=== PATIENT | male | born 1960 | race Caucasian/White ===

== ENCOUNTER 2018-06-13 08:07 | Emergency (ER) | payer BC ==
[~2018-06-13] VITALS: Ht 177.8 cm; Wt 97.3 kg
[2018-06-13 08:56] LABS: PARTIAL THROMBOPLASTIN TIME 28 SECONDS (22-32); PROTHROMBIN TIME 9.9 SECONDS (9.0-12.0)
[2018-06-13 08:58] LABS: ALANINE AMINOTRANSFERASE 44 U/L (12-78); ALBUMIN 3.1 G/DL (3.4-5.0); ALBUMIN/GLOBULIN RATIO 0.8 (1.1-1.5); ALKALINE PHOSPHATASE 69 IU/L (46-116); ANION GAP 9 (8-16); ASPARTATE AMINO TRANSFERASE 20 U/L (10-37); BILIRUBIN,TOTAL 0.7 MG/DL (0.1-1.0); BLOOD UREA NITROGEN 18 MG/DL (7-18); BUN/CREATININE RATIO 17.6 (5.4-32.0); CALCIUM 8.4 MG/DL (8.5-10.1); CHLORIDE 102 MMOL/L (99-107); CREATININE 1.02 MG/DL (0.60-1.10); GLUCOSE 94 MG/DL (70-104); POTASSIUM 3.9 MMOL/L (3.5-5.1); SODIUM 137 MMOL/L (135-145); TOTAL CARBON DIOXIDE 26.5 MMOL/L (24-32); eGFR 74 ML/MIN
[2018-06-13] MEDS ORDERED: predniSONE 20 mg tablet PO ONE (09:15)
[2018-06-13] MEDS ORDERED: ipratropium/albuterol 3ml nebule NEB ONE (09:15)
[2018-06-13 09:23] LABS: HEMATOCRIT 44.4 % (42.0-52.0); MEAN CORPUSCULAR HEMOGLOBIN 29.8 PG (27.0-31.0); MEAN CORPUSCULAR HGB CONC 33.8 % (33.0-36.5); MEAN CORPUSCULAR VOLUME 88.2 FL (78-98); PLATELET COUNT 230 X10'3 (140-440); RED BLOOD COUNT 5.03 X10'6 (4.70-6.10); RED CELL DISTRIBUTION WIDTH 13.6 % (11.5-14.5); WHITE BLOOD COUNT 11.6 X10'3 (4.5-11.0)
[2018-06-13 09:24] LABS: MEAN PLATELET VOLUME 8.1 FL (7.4-10.4)
[2018-06-13] MEDS ORDERED: iohexol 350MG/ML 100ml bottle IV ONE (09:49)
[2018-06-13 10:01] LABS: CLARITY,URINE SLIGHTLY CLOUDY (Clear); COLOR,URINE YELLOW (Yellow); GLUCOSE, URINE NEGATIVE (Neg); KETONES,URINE NEGATIVE (Neg); LEUKOCYTE ESTERASE ,URINE NEGATIVE (Neg); NITRITES, URINE NEGATIVE (Neg); OCCULT BLOOD,URINE LARGE (Neg); PH,URINE 6.5 (4.8-8.0); PROTEIN,URINE 100 mg/dl (Neg); UROBILINOGEN,URINE 0.2 E.U/dL (0.2-1.0)
[2018-06-13 10:03] LABS: TOTAL CELLS COUNTED 100
[2018-06-13 10:04] LABS: PLATELET ESTIMATE NORMAL
[2018-06-13 10:05] LABS: UA COLLECTION TYPE CLN CATCH MIDSTREAM
[2018-06-13 10:26] LABS: BACTERIA,URINE NONE SEEN /HPF (Neg); MUCUS STRANDS FEW /LPF (Neg); RBC,URINE TNTC /HPF (0-2); SQUAMOUS EPITHELIAL CELL,UR FEW /LPF (FEW); TRANSITIONAL EPI CELLS,URINE FEW /HPF; WBC,URINE 0-4 /HPF (0-4)
[2018-06-13] MEDS ORDERED: levoFLOXACIN-Levaquin 750MG/D5 150 ML IV STA (11:01)
[2018-06-13] MEDS ORDERED: AZIT250T PO (11:25)
[2018-06-13] MEDS ORDERED: LEVO750T21 PO (11:25)
[2018-06-13 13:08] VITALS: BP 115/68
== END 2018-06-13 13:09 | disposition home or self-care (01) ==
LOC: ER 08:07
DX: J18.9 Pneumonia, unspecified organism (principal); Z87.891 Personal history of nicotine dependence; Z79.2 Long term (current) use of antibiotics
CPT/HCPCS: 36415; 71045; 71275; 80053; 81001; 83605; 84484; 85025; 85610; 85730; 87040; 93005; 94640; 94760; 96365; 96366; 99285; J1956; J7512; Q9967

== ENCOUNTER 2020-04-03 07:34 | Emergency (ER) | payer BC ==
[~2020-04-03] VITALS: Ht 175.3 cm; Wt 97.5 kg
--- NOTE | 2020-04-03 08:15 | NUR ---
SPOKE WITH MD DAI AND RECEIVED VO THAT NO IV START REQUIRED UNTIL FURTHER NOTICE.
[2020-04-03 08:41] LABS: BASOPHILS # (AUTO) 0.1 X10'3 (0-0.2); BASOPHILS % (AUTO) 0.9 % (0-1); EOSINOPHILS # (AUTO) 0.4 X10'3 (0-0.9); EOSINOPHILS % (AUTO) 6.3 % (0-6); HEMOGLOBIN 16.1 g/dl (14.0-17.9); LYMPHOCYTES # (AUTO) 1.6 X10'3 (1.1-4.8); LYMPHOCYTES % (AUTO) 24.2 % (21-51); MEAN CORPUSCULAR HEMOGLOBIN 29.9 PG (27.0-31.0); MEAN CORPUSCULAR HGB CONC 33.6 g/dL (33.0-36.5); MEAN PLATELET VOLUME 7.8 FL (7.4-10.4); MONOCYTES # (AUTO) 0.5 X10'3 (0-0.9); NEUTROPHILS # (AUTO) 4.1 X10'3 (1.8-7.7); NEUTROPHILS % (AUTO) 60.6 % (42-75); PLATELET COUNT 247 X10'3 (140-440); RED CELL DISTRIBUTION WIDTH 14.3 % (11.5-14.5); WHITE BLOOD COUNT 6.8 X10'3 (4.5-11.0)
[2020-04-03 08:47] LABS: ALANINE AMINOTRANSFERASE 75 U/L (12-78); ALBUMIN 3.5 G/DL (3.4-5.0); ALBUMIN/GLOBULIN RATIO 0.9 (1.1-1.5); ALKALINE PHOSPHATASE 70 IU/L (46-116); ANION GAP 8 (8-16); ASPARTATE AMINO TRANSFERASE 32 U/L (10-37); BILIRUBIN,TOTAL 0.4 MG/DL (0.1-1.0); BLOOD UREA NITROGEN 18 MG/DL (7-18); BUN/CREATININE RATIO 14.1 (5.4-32.0); CALCIUM 8.3 MG/DL (8.5-10.1); CHLORIDE 106 MMOL/L (99-107); CREATININE 1.28 MG/DL (0.60-1.10); GLUCOSE 216 MG/DL (70-104); POTASSIUM 4.2 MMOL/L (3.5-5.1); SODIUM 142 MMOL/L (135-145); TOTAL PROTEIN 7.2 G/DL (6.4-8.2); eGFR 57 ML/MIN
[2020-04-03 09:19] LABS: PARTIAL THROMBOPLASTIN TIME 27 SECONDS (22-32)
--- NOTE | 2020-04-03 09:25 | NUR ---
PT CURRENTLY SLEEPING.
[2020-04-03 10:56] VITALS: BP 154/91
== END 2020-04-03 10:30 | disposition home or self-care (01) ==
LOC: ER 07:34
DX: I10 Essential (primary) hypertension (principal); R73.9 Hyperglycemia, unspecified; R06.02 Shortness of breath; Z79.899 Other long term (current) drug therapy
CPT/HCPCS: 36415; 71045; 80053; 83880; 84484; 85025; 85610; 85730; 93005; 99285

== ENCOUNTER 2020-05-18 03:55 | Inpatient (IN) | payer BC ==
[~2020-05-18] VITALS: Ht 177.8 cm; Wt 105.0 kg
--- NOTE | 2020-05-18 04:12 | NUR ---
PTS , SARAH [phone]
[2020-05-18] MEDS ORDERED: ipratropium/albuterol 3ml nebule NEB ONE (04:15)
[2020-05-18] MEDS ORDERED: methylPREDNISolone sod succ 125mg/2ml vial IV ONE (04:15)
[2020-05-18] MEDS ORDERED: ondansetron/PF 4mg/2ml inj IV ONE (04:35)
[2020-05-18 04:53] LABS: BASOPHILS # (AUTO) 0.1 X10'3 (0-0.2); BASOPHILS % (AUTO) 0.4 % (0-1); EOSINOPHILS # (AUTO) 0.5 X10'3 (0-0.9); EOSINOPHILS % (AUTO) 3.4 % (0-6); HEMOGLOBIN 17.6 g/dl (14.0-17.9); LYMPHOCYTES # (AUTO) 1.7 X10'3 (1.1-4.8); LYMPHOCYTES % (AUTO) 12.2 % (21-51); MEAN CORPUSCULAR HEMOGLOBIN 29.8 PG (27.0-31.0); MEAN CORPUSCULAR HGB CONC 33.2 g/dL (33.0-36.5); MEAN CORPUSCULAR VOLUME 89.8 FL (78-98); MEAN PLATELET VOLUME 7.6 FL (7.4-10.4); MONOCYTES # (AUTO) 0.6 X10'3 (0-0.9); MONOCYTES % (AUTO) 4.4 % (2-12); NEUTROPHILS # (AUTO) 10.8 X10'3 (1.8-7.7); NEUTROPHILS % (AUTO) 79.6 % (42-75); PLATELET COUNT 291 X10'3 (140-440); RED CELL DISTRIBUTION WIDTH 14.4 % (11.5-14.5); WHITE BLOOD COUNT 13.5 X10'3 (4.5-11.0)
[2020-05-18 05:05] LABS: ALANINE AMINOTRANSFERASE 68 U/L (12-78); ALBUMIN 3.8 G/DL (3.4-5.0); ALBUMIN/GLOBULIN RATIO 0.9 (1.1-1.5); ALKALINE PHOSPHATASE 77 IU/L (46-116); ANION GAP 10 (8-16); ASPARTATE AMINO TRANSFERASE 34 U/L (10-37); BILIRUBIN,TOTAL 0.6 MG/DL (0.1-1.0); BLOOD UREA NITROGEN 16 MG/DL (7-18); BUN/CREATININE RATIO 12.4 (5.4-32.0); CHLORIDE 101 MMOL/L (99-107); CREATININE 1.29 MG/DL (0.60-1.10); GLUCOSE 113 MG/DL (70-104); SODIUM 138 MMOL/L (135-145); TOTAL CARBON DIOXIDE 27.5 MMOL/L (24-32); TOTAL PROTEIN 8.1 G/DL (6.4-8.2); eGFR 57 ML/MIN
[2020-05-18 05:07] LABS: POTASSIUM 4.1 MMOL/L (3.5-5.1)
[2020-05-18] MEDS ORDERED: normal saline 1000ml 1,000 ML IV ONE (05:20)
[2020-05-18] MEDS ORDERED: vancomycin inj 1,000 MG in normal saline 250ml IV soln 250 ML IV ONE (05:20)
[2020-05-18] MEDS ORDERED: CefTRIAXone/D5W-Rocephin 1gm 50 ML IV ONE (05:20)
[2020-05-18] MEDS ORDERED: vancomycin/NS 1 GM ADD-VANTAGE 250 ML IV ONE (05:21)
[2020-05-18] MEDS ORDERED: METO-395 PO (05:23)
[2020-05-18] MEDS ORDERED: potassium Cl 20 mEq SR tablet PO PRN ×2 (05:55)
[2020-05-18] MEDS ORDERED: magnesium 4gm in 100ml NS 100 ML IV PRN (05:55)
[2020-05-18] MEDS ORDERED: magnesium hydroxide 30ml (MOM) UD suspension PO PRN (05:55)
[2020-05-18] MEDS ORDERED: ondansetron/PF 4mg/2ml inj IV PRN (05:55)
[2020-05-18] MEDS ORDERED: bisacodyl 10mg suppository rectal RC PRN (05:55)
[2020-05-18] MEDS ORDERED: potassium CL 10mEq/100ml bag 100 ML IV PRN ×2 (05:55)
[2020-05-18] MEDS ORDERED: HYDROcodone/acetaminophen 10/325mg tab PO PRN (05:55)
[2020-05-18] MEDS ORDERED: HYDROcodone/acetaminophen 5mg/325mg tablet PO PRN (05:55)
[2020-05-18] MEDS ORDERED: magnesium 2GM in 50ml NS 50 ML IV PRN (05:55)
[2020-05-18] MEDS ORDERED: mag hydrox/Alum hydrox/simeth 30ml oral suspension PO PRN (05:55)
[2020-05-18] MEDS ORDERED: magnesium Cl slow-release 64mg tablet PO PRN (05:55)
[2020-05-18] MEDS ORDERED: acetaminophen 325mg tablet PO PRN ×2 (05:55)
[2020-05-18] MEDS ORDERED: ipratropium/albuterol 3ml nebule NEB PRN (06:00)
--- NOTE | 2020-05-18 06:13 | NUR ---
PT CALLED. PER PT, OKAY TO GIVE INFORMATION. UPDATE GIVEN AND WILL CALL BACK LATER FOR FUTHER UPDATE
[2020-05-18] MEDS: normal saline 1000ml 1,000 ML IV SCH ×2 (06:58→15:52)
[2020-05-18] MEDS: azithromycin/NS 500mg/250ml 250 ML IV SCH (06:58)
[2020-05-18] MEDS: ipratropium/albuterol 3ml nebule NEB SCH ×5 (07:00→23:00)
[2020-05-18] MEDS: K and/or MAG REPLACEMENT MC SCH ×2 (08:00→19:24)
[2020-05-18 10:00] VITALS: BP 154/83
[2020-05-18] MEDS ORDERED: furosemide 20 MG/2 ML vial IV ONE (10:45)
[2020-05-18] MEDS: methylPREDNISolone sod succ 125mg/2ml vial IV SCH ×4 (11:33→19:24)
[2020-05-18] MEDS: CefTRIAXone/D5W-Rocephin 1gm 50 ML IV SCH (11:33)
[2020-05-18] MEDS: metoprolol succinate 25mg (24-HOUR) SR. Tablet PO SCH (11:33)
[2020-05-18] MEDS: enoxaparin 40mg/0.4ml syringe SUBCUT SCH (11:34)
--- NOTE | 2020-05-18 16:23 | NUR ---
Problems reprioritized. Patient report given, questions answered & plan of care reviewed with KYREE TRIPLETT.
[2020-05-18] MEDS: calcium carbonate 500mg chew tablet PO SCH (16:54)
[2020-05-18 18:00] VITALS: BP 138/69
[2020-05-18] MEDS: lactobacillus rhamnosus 10,000 MMU CELLS/CAPSULE PO SCH (19:24)
[2020-05-18] MEDS ORDERED: temazepam 15mg capsule PO PRN (21:00)
--- NOTE | 2020-05-18 21:13 | NUR ---
PAGER ID: [phone] MESSAGE: Amisha adelso [phone]. Delio Saleem in room 4013A has a blood sugar of 333. No known history of DM. At 1800 he was 222. Would you like any order changes for this patient? He is not on the protocol. Blood sugars are ACHS.
[2020-05-18 22:00] VITALS: BP 134/72
--- NOTE | 2020-05-18 22:05 | NUR ---
Second page sent to Dr. Gonzáles in regards to patients BS being 333.
--- NOTE | 2020-05-18 22:11 | NUR ---
Spoke with Dr. Gonzáles. He stated to order a hemoglobin A1C. There is one ordered to be drawn in the morning and he stated that is okay. No other changes in orders.
--- NOTE | 2020-05-18 22:16 | NUR ---
PAGER ID: [phone] MESSAGE: Amisha darden [phone]. Delio Saleem in room 4013A A1C came back at 5.8. Do you want to make any changes in orders?
--- NOTE | 2020-05-18 23:43 | NUR ---
Did not receive a call back from Dr. Gonzáles in regards to the patients A1C. Will pass along to day shift about the patients BS and A1C and continue to monitor.
[2020-05-19] MEDS: methylPREDNISolone sod succ 125mg/2ml vial IV SCH ×2 (03:07→08:47)
[2020-05-19] MEDS: normal saline 1000ml 1,000 ML IV SCH (03:07)
[2020-05-19 06:13] LABS: BASOPHILS # (AUTO) 0.1 X10'3 (0-0.2); BASOPHILS % (AUTO) 0.3 % (0-1); EOSINOPHILS % (AUTO) 0.1 % (0-6); HEMATOCRIT 44.4 % (42.0-52.0); HEMOGLOBIN 14.9 g/dl (14.0-17.9); LYMPHOCYTES # (AUTO) 1.4 X10'3 (1.1-4.8); LYMPHOCYTES % (AUTO) 5.8 % (21-51); MEAN CORPUSCULAR HEMOGLOBIN 30.3 PG (27.0-31.0); MEAN CORPUSCULAR HGB CONC 33.6 g/dL (33.0-36.5); MEAN PLATELET VOLUME 7.7 FL (7.4-10.4); MONOCYTES # (AUTO) 1.2 X10'3 (0-0.9); NEUTROPHILS # (AUTO) 21.8 X10'3 (1.8-7.7); NEUTROPHILS % (AUTO) 88.8 % (42-75); PLATELET COUNT 270 X10'3 (140-440); RED BLOOD COUNT 4.93 X10'6 (4.70-6.10); RED CELL DISTRIBUTION WIDTH 14.3 % (11.5-14.5); WHITE BLOOD COUNT 24.6 X10'3 (4.5-11.0)
--- NOTE | 2020-05-19 06:19 | NUR ---
Problems reprioritized. Patient report given, questions answered & plan of care reviewed with nat TRIPLETT.
--- NOTE | 2020-05-19 06:25 | NUR ---
received report from Amisha TRIPLETT
[2020-05-19 06:29] LABS: ALANINE AMINOTRANSFERASE 40 U/L (12-78); ALBUMIN 3.1 G/DL (3.4-5.0); ALBUMIN/GLOBULIN RATIO 0.8 (1.1-1.5); ALKALINE PHOSPHATASE 59 IU/L (46-116); ANION GAP 9 (8-16); ASPARTATE AMINO TRANSFERASE 15 U/L (10-37); BILIRUBIN,TOTAL 0.4 MG/DL (0.1-1.0); BLOOD UREA NITROGEN 24 MG/DL (7-18); BUN/CREATININE RATIO 20.7 (5.4-32.0); CALCIUM 8.5 MG/DL (8.5-10.1); CHLORIDE 104 MMOL/L (99-107); CHOLESTEROL 222 MG/DL (0-200); CREATININE 1.16 MG/DL (0.60-1.10); GLUCOSE 164 MG/DL (70-104); HDL CHOLESTEROL 44 MG/DL (35-60); LDL CHOLESTEROL 156 MG/DL (50-100); MAGNESIUM 2.3 MG/DL (1.5-2.4); PHOSPHORUS 2.9 MG/DL (2.3-4.5); POTASSIUM 4.1 MMOL/L (3.5-5.1); SODIUM 139 MMOL/L (135-145); TOTAL PROTEIN 7.2 G/DL (6.4-8.2); TRIGLYCERIDES 97 MG/DL (20-135); eGFR 64 ML/MIN
[2020-05-19 06:57] LABS: PLATELET ESTIMATE NORMAL; TOTAL CELLS COUNTED 100
[2020-05-19 07:19] VITALS: BP 146/75
[2020-05-19] MEDS: ipratropium/albuterol 3ml nebule NEB SCH ×2 (08:02→10:42)
[2020-05-19] MEDS: CefTRIAXone/D5W-Rocephin 1gm 50 ML IV SCH (08:46)
[2020-05-19] MEDS: metoprolol succinate 25mg (24-HOUR) SR. Tablet PO SCH (08:46)
[2020-05-19] MEDS: lactobacillus rhamnosus 10,000 MMU CELLS/CAPSULE PO SCH (08:46)
[2020-05-19] MEDS: enoxaparin 40mg/0.4ml syringe SUBCUT SCH (08:46)
[2020-05-19] MEDS: calcium carbonate 500mg chew tablet PO SCH (08:46)
[2020-05-19] MEDS: azithromycin/NS 500mg/250ml 250 ML IV SCH (09:59)
[2020-05-19] MEDS ORDERED: AZIT500T2 PO (12:36)
[2020-05-19] MEDS ORDERED: CEFD300C3 PO (12:36)
[2020-05-19] MEDS ORDERED: PRED20TA PO (12:36)
--- NOTE | 2020-05-19 14:22 | NUR ---
Patient was discharged iv and tele was removed from patient. Patient was alert and oriented at time of discharged.
[2020-05-19] MEDS ORDERED: AZIT-63 PO (15:28)
[2020-05-20] MEDS ORDERED: CEFD300C21 PO (15:56)
[2020-05-20] MEDS ORDERED: PRED10TA23 PO (15:56)
[2020-05-20] MEDS ORDERED: AZIT-63 PO (15:56)
== END 2020-05-19 13:00 | disposition home or self-care (01) | DRG 193 ==
LOC: ER 03:55 → ED HOLD 05:52 → ORTHO 4S 10:00
PROVIDERS: ADMIT Family Medicine; ATTEND Internal Medicine
DX: J18.9 Pneumonia, unspecified organism (principal); J96.01 Acute respiratory failure with hypoxia; N17.9 Acute kidney failure, unspecified; I10 Essential (primary) hypertension; T38.0X5A Adverse effect of glucocorticoids and synthetic analogues, initial encounter; R00.0 Tachycardia, unspecified; Y92.89 Other specified places as the place of occurrence of the external cause
CPT/HCPCS: 36415; 71045; 80053; 80061; 82948; 83036; 83605; 83735; 83880; 84100; 84145; 84443; 84484; 85007; 85025; 87040; 87081; 87635; 93005; 93306; 94640; 94760; 99285; G0378; J0456; J0696; J1650; J1940; J2405; J2930; J3370; J7030

== ENCOUNTER 2020-05-20 07:02 | Inpatient (IN) | payer BC ==
[~2020-05-20] VITALS: Ht 170.2 cm; Wt 110.9 kg
[~2020-05-20 07:02] MED LIST: AZIT-63 PO; CEFD300C3 PO; METO-395 PO; PRED20TA PO
[2020-05-20] MEDS ORDERED: normal saline 1000ML IV soln IVB ONE (07:35)
[2020-05-20 08:00] LABS: BASOPHILS % (AUTO) 0.2 % (0-1); EOSINOPHILS % (AUTO) 0.1 % (0-6); HEMATOCRIT 43.8 % (42.0-52.0); HEMOGLOBIN 14.8 g/dl (14.0-17.9); LYMPHOCYTES # (AUTO) 1.9 X10'3 (1.1-4.8); LYMPHOCYTES % (AUTO) 8.2 % (21-51); MEAN CORPUSCULAR HGB CONC 33.7 g/dL (33.0-36.5); MEAN CORPUSCULAR VOLUME 89.1 FL (78-98); MEAN PLATELET VOLUME 7.4 FL (7.4-10.4); MONOCYTES # (AUTO) 1.4 X10'3 (0-0.9); MONOCYTES % (AUTO) 6.1 % (2-12); NEUTROPHILS % (AUTO) 85.4 % (42-75); PLATELET COUNT 301 X10'3 (140-440); RED BLOOD COUNT 4.91 X10'6 (4.70-6.10); RED CELL DISTRIBUTION WIDTH 14.5 % (11.5-14.5); WHITE BLOOD COUNT 23.5 X10'3 (4.5-11.0)
[2020-05-20] MEDS ORDERED: iohexol 300mg/ml 100ml inj. ONE (08:03)
[2020-05-20 08:13] LABS: ALANINE AMINOTRANSFERASE 45 U/L (12-78); ALBUMIN/GLOBULIN RATIO 0.8 (1.1-1.5); ALKALINE PHOSPHATASE 59 IU/L (46-116); ANION GAP 11 (8-16); ASPARTATE AMINO TRANSFERASE 21 U/L (10-37); BILIRUBIN,TOTAL 0.4 MG/DL (0.1-1.0); BLOOD UREA NITROGEN 27 MG/DL (7-18); BUN/CREATININE RATIO 24.5 (5.4-32.0); CALCIUM 8.3 MG/DL (8.5-10.1); CHLORIDE 105 MMOL/L (99-107); GLUCOSE 96 MG/DL (70-104); LIPASE 1056 U/L (73-393); MAGNESIUM 2.2 MG/DL (1.5-2.4); POTASSIUM 4.3 MMOL/L (3.5-5.1); SODIUM 142 MMOL/L (135-145); TOTAL CARBON DIOXIDE 25.7 MMOL/L (24-32); TOTAL PROTEIN 6.7 G/DL (6.4-8.2); eGFR 68 ML/MIN
--- NOTE | 2020-05-20 08:17 | NUR ---
PT. OFF UNIT AT CT
--- NOTE | 2020-05-20 08:26 | NUR ---
BACK FROM CT
[2020-05-20] MEDS ORDERED: normal saline 1000ML IV soln IV ONE (10:10)
[2020-05-20] MEDS ORDERED: ertapenem sod inj 1 GM in normal saline 100ml IV soln 100 ML IV ONE (11:00)
[2020-05-20] MEDS ORDERED: acetaminophen 650mg rectal suppository RC PRN (11:30)
[2020-05-20] MEDS ORDERED: HYDROcodone/acetaminophen 10/325mg tab PO PRN (11:30)
[2020-05-20] MEDS ORDERED: mag hydrox/Alum hydrox/simeth 30ml oral suspension PO PRN (11:30)
[2020-05-20] MEDS ORDERED: ondansetron/PF 4mg/2ml inj IV PRN (11:30)
[2020-05-20] MEDS ORDERED: bisacodyl 10mg suppository rectal RC PRN (11:30)
[2020-05-20] MEDS ORDERED: magnesium hydroxide 30ml (MOM) UD suspension PO PRN (11:30)
[2020-05-20] MEDS ORDERED: HYDROmorphone inj. 0.5 MG/0.5 ML DISP.SYRIN IV PRN (11:30)
[2020-05-20] MEDS ORDERED: magnesium 4gm in 100ml NS 100 ML IV PRN (11:30)
[2020-05-20] MEDS ORDERED: potassium Cl 20 mEq SR tablet PO PRN ×2 (11:30)
[2020-05-20] MEDS ORDERED: acetaminophen 325mg tablet PO PRN ×2 (11:30)
[2020-05-20] MEDS ORDERED: potassium CL 10mEq/100ml bag 100 ML IV PRN ×2 (11:30)
[2020-05-20] MEDS ORDERED: magnesium 2GM in 50ml NS 50 ML IV PRN (11:30)
[2020-05-20] MEDS ORDERED: magnesium Cl slow-release 64mg tablet PO PRN (11:30)
[2020-05-20] MEDS ORDERED: HYDROcodone/acetaminophen 5mg/325mg tablet PO PRN (11:30)
[2020-05-20 11:35] LABS: PARTIAL THROMBOPLASTIN TIME 27 SECONDS (22-32)
[2020-05-20] MEDS: normal saline 1000ml 1,000 ML IV SCH ×2 (14:50→21:29)
[2020-05-20] MEDS ORDERED: AZIT-63 PO (15:56)
[2020-05-20] MEDS ORDERED: CEFD300C21 PO (15:56)
[2020-05-20] MEDS ORDERED: PRED10TA23 PO (15:56)
--- NOTE | 2020-05-20 16:50 | NUR ---
recieved fr/ ER into 348B. Awake and alert. States pain 2/. IV infusing via PIV Lt wrist to IV pump 100ml/h. RA sats 94%.
[2020-05-20 17:24] VITALS: BP 159/84
--- NOTE | 2020-05-20 17:25 | NUR ---
Problems reprioritized. Patient report given, questions answered & plan of care reviewed with BEAU TRIPLETT.
--- NOTE | 2020-05-20 17:57 | NUR ---
PATIENT ARRIVED TO FLOOR, VITALS TAKEN AND PATIENT WAS MADE FAMILIAR WITH THE ROOM. UPON ASSESSING THE PATIENT THROUGH THE GROSS SYSTEMS, PATIENT WAS WNL BUT HAD EXPIRATORY WHEEZES, DIMINISHED AT THE THE BASSES. PATIENT HAD SOUND IN X4Q OF ABDOMEN SLIGHTLY HYPO ACTIVE IN THE LEFT LOWER QUADRANT. PATIENT SKIN IS CLEAR NO OPEN WOUND. PATIENT HAS WELL CONTROLLED PAIN AT THIS TIME.
--- NOTE | 2020-05-20 18:07 | NUR ---
Patient in room LIN 348. I have received report from Khoi TRIPLETT and had the opportunity to ask questions and assume patient care.
--- NOTE | 2020-05-20 18:21 | NUR ---
Problems reprioritized. Patient report given, questions answered & plan of care reviewed with NEELA TRIPLETT.
[2020-05-20 20:00] VITALS: BP 154/92
[2020-05-20] MEDS: K and/or MAG REPLACEMENT MC SCH (20:00)
[2020-05-20] MEDS: diatr meglu/diatrizoate 30ml oral sol.-(3 dose) bottle PO SCH (21:57)
[2020-05-21] VITALS (11 sets, daily range): BP systolic 126–158; BP diastolic 62–94
[2020-05-21] MEDS: normal saline 1000ml 1,000 ML IV SCH ×3 (00:19→17:45)
[2020-05-21 05:21] LABS: BASOPHILS % (AUTO) 0.3 % (0-1); EOSINOPHILS # (AUTO) 0.1 X10'3 (0-0.9); HEMATOCRIT 42.4 % (42.0-52.0); HEMOGLOBIN 14.3 g/dl (14.0-17.9); LYMPHOCYTES # (AUTO) 1.8 X10'3 (1.1-4.8); LYMPHOCYTES % (AUTO) 13.5 % (21-51); MEAN CORPUSCULAR HEMOGLOBIN 29.7 PG (27.0-31.0); MEAN CORPUSCULAR HGB CONC 33.7 g/dL (33.0-36.5); MEAN CORPUSCULAR VOLUME 88.2 FL (78-98); MEAN PLATELET VOLUME 7.4 FL (7.4-10.4); MONOCYTES % (AUTO) 7.5 % (2-12); NEUTROPHILS # (AUTO) 10.2 X10'3 (1.8-7.7); NEUTROPHILS % (AUTO) 77.7 % (42-75); PLATELET COUNT 262 X10'3 (140-440); RED BLOOD COUNT 4.81 X10'6 (4.70-6.10); RED CELL DISTRIBUTION WIDTH 14.5 % (11.5-14.5); WHITE BLOOD COUNT 13.1 X10'3 (4.5-11.0)
[2020-05-21 05:41] LABS: ALANINE AMINOTRANSFERASE 40 U/L (12-78); ALBUMIN 2.8 G/DL (3.4-5.0); ALBUMIN/GLOBULIN RATIO 0.8 (1.1-1.5); ALKALINE PHOSPHATASE 59 IU/L (46-116); ANION GAP 8 (8-16); ASPARTATE AMINO TRANSFERASE 20 U/L (10-37); BILIRUBIN,TOTAL 0.8 MG/DL (0.1-1.0); BLOOD UREA NITROGEN 23 MG/DL (7-18); BUN/CREATININE RATIO 20.5 (5.4-32.0); CALCIUM 8.3 MG/DL (8.5-10.1); CHLORIDE 104 MMOL/L (99-107); CREATININE 1.12 MG/DL (0.60-1.10); GLUCOSE 83 MG/DL (70-104); MAGNESIUM 2.1 MG/DL (1.5-2.4); SODIUM 138 MMOL/L (135-145); TOTAL CARBON DIOXIDE 25.8 MMOL/L (24-32); TOTAL PROTEIN 6.5 G/DL (6.4-8.2); eGFR 67 ML/MIN
--- NOTE | 2020-05-21 06:48 | NUR ---
Problems reprioritized. Patient report given, questions answered & plan of care reviewed with Stacey TRIPLETT.
[2020-05-21] MEDS: diatr meglu/diatrizoate 30ml oral sol.-(3 dose) bottle PO SCH (07:42)
[2020-05-21] MEDS: metoprolol succinate 25mg (24-HOUR) SR. Tablet PO SCH (07:42)
[2020-05-21] MEDS: K and/or MAG REPLACEMENT MC SCH ×2 (08:00→20:00)
[2020-05-21] MEDS: ertapenem sod inj 1 GM in normal saline 100ml IV soln 100 ML IV SCH (08:41)
--- NOTE | 2020-05-21 09:47 | NUR ---
reviewed instructor of nursing charting
[2020-05-21] MEDS ORDERED: pneumococcal 23-VAL P-sac vacc 25 mcg/0.5ml vial IMVAC ONE (10:00)
--- NOTE | 2020-05-21 14:22 | NUR ---
reviewed student nurse charting
--- NOTE | 2020-05-21 18:04 | NUR ---
Problems reprioritized. Patient report given, questions answered & plan of care reviewed with IOANA Woods.
--- NOTE | 2020-05-21 18:07 | NUR ---
Patient in room LIN 348. I have received report from Stacey TRIPLETT and had the opportunity to ask questions and assume patient care.
--- NOTE | 2020-05-21 19:24 | NUR ---
Patient drank the broth and apple juice. Addendum: 05/21/20 at 1924 by Peggy Haas RN Amended: Links added.
[2020-05-21] MEDS: temazepam 15mg capsule PO PRN (22:33)
[2020-05-22] VITALS: BP 139/68
[2020-05-22] MEDS: normal saline 1000ml 1,000 ML IV SCH ×2 (02:28→14:21)
[2020-05-22 05:05] LABS: BASOPHILS # (AUTO) 0.1 X10'3 (0-0.2); BASOPHILS % (AUTO) 0.4 % (0-1); EOSINOPHILS # (AUTO) 0.2 X10'3 (0-0.9); EOSINOPHILS % (AUTO) 1.8 % (0-6); HEMATOCRIT 43.8 % (42.0-52.0); HEMOGLOBIN 14.7 g/dl (14.0-17.9); LYMPHOCYTES # (AUTO) 1.4 X10'3 (1.1-4.8); LYMPHOCYTES % (AUTO) 10.6 % (21-51); MEAN CORPUSCULAR HEMOGLOBIN 29.9 PG (27.0-31.0); MEAN CORPUSCULAR HGB CONC 33.4 g/dL (33.0-36.5); MEAN CORPUSCULAR VOLUME 89.5 FL (78-98); MEAN PLATELET VOLUME 7.4 FL (7.4-10.4); MONOCYTES # (AUTO) 1.3 X10'3 (0-0.9); MONOCYTES % (AUTO) 9.7 % (2-12); NEUTROPHILS # (AUTO) 10.3 X10'3 (1.8-7.7); NEUTROPHILS % (AUTO) 77.5 % (42-75); PLATELET COUNT 262 X10'3 (140-440); RED CELL DISTRIBUTION WIDTH 14.1 % (11.5-14.5); WHITE BLOOD COUNT 13.3 X10'3 (4.5-11.0)
[2020-05-22 05:28] LABS: ALANINE AMINOTRANSFERASE 41 U/L (12-78); ALBUMIN 2.5 G/DL (3.4-5.0); ALBUMIN/GLOBULIN RATIO 0.7 (1.1-1.5); ALKALINE PHOSPHATASE 59 IU/L (46-116); ANION GAP 8 (8-16); ASPARTATE AMINO TRANSFERASE 23 U/L (10-37); BILIRUBIN,TOTAL 0.8 MG/DL (0.1-1.0); BLOOD UREA NITROGEN 20 MG/DL (7-18); BUN/CREATININE RATIO 20.6 (5.4-32.0); CALCIUM 7.8 MG/DL (8.5-10.1); CHLORIDE 104 MMOL/L (99-107); CREATININE 0.97 MG/DL (0.60-1.10); GLUCOSE 80 MG/DL (70-104); MAGNESIUM 2.1 MG/DL (1.5-2.4); POTASSIUM 3.9 MMOL/L (3.5-5.1); SODIUM 138 MMOL/L (135-145); TOTAL CARBON DIOXIDE 25.6 MMOL/L (24-32); TOTAL PROTEIN 6.1 G/DL (6.4-8.2); eGFR 79 ML/MIN
--- NOTE | 2020-05-22 06:30 | NUR ---
Problems reprioritized. Patient report given, questions answered & plan of care reviewed with Ann TRIPLETT.
--- NOTE | 2020-05-22 06:49 | NUR ---
Patient in room LIN 348. I have received report from Peggy TRIPLETT and had the opportunity to ask questions and assume patient care.
[2020-05-22 07:05] LABS: PLATELET ESTIMATE NORMAL; TOTAL CELLS COUNTED 100
[2020-05-22] MEDS: ertapenem sod inj 1 GM in normal saline 100ml IV soln 100 ML IV SCH (07:49)
[2020-05-22] MEDS: metoprolol succinate 25mg (24-HOUR) SR. Tablet PO SCH (08:00)
[2020-05-22] MEDS: K and/or MAG REPLACEMENT MC SCH ×2 (08:00→20:00)
[2020-05-22 08:06] VITALS: BP 160/94
[2020-05-22 11:00] VITALS: BP 140/83
[2020-05-22] MEDS: metroNIDAZOLE-Flagyl 500mg/NS 100 ML IV SCH (16:07)
--- NOTE | 2020-05-22 18:39 | NUR ---
Problems reprioritized. Patient report given, questions answered & plan of care reviewed with Kellie TRIPLETT. .
--- NOTE | 2020-05-22 18:40 | NUR ---
Patient in room LIN 348. I have received report from MAY TRIPLETT and had the opportunity to ask questions and assume patient care.
[2020-05-22 20:00] VITALS: BP 143/75
[2020-05-22] MEDS: temazepam 15mg capsule PO PRN (20:59)
[2020-05-23] VITALS: BP 125/69
[2020-05-23] MEDS: normal saline 1000ml 1,000 ML IV SCH (00:30)
[2020-05-23] MEDS: metroNIDAZOLE-Flagyl 500mg/NS 100 ML IV SCH ×2 (00:30→09:07)
[2020-05-23 05:17] LABS: ALANINE AMINOTRANSFERASE 51 U/L (12-78); ALBUMIN 2.3 G/DL (3.4-5.0); ALBUMIN/GLOBULIN RATIO 0.6 (1.1-1.5); ALKALINE PHOSPHATASE 58 IU/L (46-116); ANION GAP 7 (8-16); ASPARTATE AMINO TRANSFERASE 24 U/L (10-37); BILIRUBIN,TOTAL 0.5 MG/DL (0.1-1.0); BLOOD UREA NITROGEN 17 MG/DL (7-18); BUN/CREATININE RATIO 17.3 (5.4-32.0); CALCIUM 8.2 MG/DL (8.5-10.1); CHLORIDE 106 MMOL/L (99-107); CREATININE 0.98 MG/DL (0.60-1.10); GLUCOSE 91 MG/DL (70-104); POTASSIUM 3.9 MMOL/L (3.5-5.1); SODIUM 139 MMOL/L (135-145); TOTAL CARBON DIOXIDE 25.9 MMOL/L (24-32); eGFR 78 ML/MIN
[2020-05-23 05:57] LABS: BASOPHILS # (AUTO) 0.1 X10'3 (0-0.2); BASOPHILS % (AUTO) 0.7 % (0-1); EOSINOPHILS # (AUTO) 0.5 X10'3 (0-0.9); EOSINOPHILS % (AUTO) 4.1 % (0-6); HEMATOCRIT 43.5 % (42.0-52.0); HEMOGLOBIN 14.3 g/dl (14.0-17.9); LYMPHOCYTES # (AUTO) 1.6 X10'3 (1.1-4.8); LYMPHOCYTES % (AUTO) 11.9 % (21-51); MEAN CORPUSCULAR HEMOGLOBIN 29.5 PG (27.0-31.0); MEAN CORPUSCULAR HGB CONC 32.9 g/dL (33.0-36.5); MEAN CORPUSCULAR VOLUME 89.5 FL (78-98); MEAN PLATELET VOLUME 7.5 FL (7.4-10.4); MONOCYTES # (AUTO) 1.4 X10'3 (0-0.9); MONOCYTES % (AUTO) 10.3 % (2-12); NEUTROPHILS # (AUTO) 9.7 X10'3 (1.8-7.7); PLATELET COUNT 263 X10'3 (140-440); RED BLOOD COUNT 4.86 X10'6 (4.70-6.10); RED CELL DISTRIBUTION WIDTH 14.3 % (11.5-14.5); WHITE BLOOD COUNT 13.3 X10'3 (4.5-11.0)
--- NOTE | 2020-05-23 06:29 | NUR ---
Problems reprioritized. Patient report given, questions answered & plan of care reviewed with MAY TRIPLETT.
--- NOTE | 2020-05-23 06:31 | NUR ---
Patient in room LIN 348. I have received report from Kellie TRIPLETT and had the opportunity to ask questions and assume patient care.
[2020-05-23 07:00] VITALS: BP 135/79
[2020-05-23] MEDS ORDERED: levoFLOXACIN-Levaquin 500mg/D5 100 ML IV SCH (08:00)
[2020-05-23] MEDS: K and/or MAG REPLACEMENT MC SCH (08:00)
[2020-05-23] MEDS: metoprolol succinate 25mg (24-HOUR) SR. Tablet PO SCH (09:08)
--- NOTE | 2020-05-23 12:00 | NUR ---
Patient peripheral IV catheter on the left forearm got infiltrated, IV discontinued. Warm blanket applied. Dr. Madera notified about IV infiltration. I asked her if patient is going home today so I can find out if I need to put a new IV. She said to contact Dr. Corea if he is okay with discharging this patient.
--- NOTE | 2020-05-23 12:06 | NUR ---
Per. Dr. Corea the patient is okay to be discharge from his standpoint. Dr. Corea recommend patient will need to follow up with his PCP and get colonoscopy done in [address] Madera notified about this.
[2020-05-23] MEDS ORDERED: LEVO500T89 PO (13:36)
[2020-05-23] MEDS ORDERED: HYDR-4383 PO (13:36)
[2020-05-23] MEDS ORDERED: METR-159 PO (13:36)
--- NOTE | 2020-05-23 14:05 | NUR ---
Discharged patient home. Discharge instructions given to patient, patient verbalized understanding of all instruction made. Written prescription for [place] given to patient, clipped on his discharge folder. PO Antibiotic called in to pharmacy of choice c/o Rose Mary, Auditing Control Clerk. Instructed patient to ensure he has all his belongings with him before leaving.
== END 2020-05-23 14:05 | disposition home or self-care (01) | DRG 391 ==
LOC: ER 07:03 → ED HOLD 11:29 → SUR 3N 16:52
PROVIDERS: ADMIT Family Medicine; ATTEND Family Medicine
PROC: 3E0234Z Introduction of Serum, Toxoid and Vaccine into Muscle, Percutaneous Approach (ICD-10-PCS; principal; 2020-05-21)
DX: K57.20 Diverticulitis of large intestine with perforation and abscess without bleeding (principal); K85.90 Acute pancreatitis without necrosis or infection, unspecified; K65.9 Peritonitis, unspecified; E66.9 Obesity, unspecified; N30.80 Other cystitis without hematuria; N18.3 Chronic kidney disease, stage 3 (moderate); I12.9 Hypertensive chronic kidney disease with stage 1 through stage 4 chronic kidney disease, or unspecified chronic kidney disease; Z87.01 Personal history of pneumonia (recurrent); Z20.828 Contact with and (suspected) exposure to other viral communicable diseases; Z23 Encounter for immunization
CPT/HCPCS: 36415; 74177; 76700; 80053; 82948; 83605; 83690; 83735; 84145; 85007; 85025; 85610; 85730; 86885; 86900; 86901; 87040; 87081; 87635; 90732; 93005; 96361; 96365; 99285; G0378; J1170; J1335; J1956; J3490; J7030; Q9963; Q9967

== ENCOUNTER 2025-02-06 15:37 | Emergency (ER) | payer BC, MEDICARE ==
[~2025-02-06] VITALS: Ht 175.3 cm; Wt 91.5 kg
[~2025-02-06 15:37] MED LIST changes: -AZIT-63 PO; -CEFD300C3 PO; +HYDR-4383 PO; -PRED20TA PO
[2025-02-06 15:41] VITALS: BP 145/70; PULSE 84; RESP 16; TEMP 98.4; O2SAT 94
--- NOTE | 2025-02-06 16:14 | RADIOLOGY REPORT ---
EXAM: DI CHEST,SINGLE VIEW HISTORY: r/o pna COMPARISON: None TECHNIQUE: Portable AP views of the chest were performed. FINDINGS: No pneumothorax, consolidative infiltrates, or pulmonary edema. The heart is not enlarged. There is m ild thoracic degenerative disc disease. IMPRESSION: No acute intrathoracic process.
[2025-02-06] MEDS ORDERED: CYCL-1 PO (17:27)
--- NOTE | 2025-02-06 17:27 | Physician Documentation ---
History of Present Illness General Chief Complaint: See Chief Complaint Stated Complaint: COLD SYMPTOMS Time Seen by MD: 17:13 Primary Medical Doctor: dr. moreira History of Present Illness Initial Comments This is a 64-year-old male who presents with approximately three days of discomfort in his back described as tightness patient reports feels similar to when he had pneumonia however patient reports no cough, fever, shortness of breath, or chest pain. Medication Reconciliation Allergies: Coded Allergies: No Known Allergies (Unverified , 05/18/20) Scheduled Cyclobenzaprine* (Cyclobenzaprine*), 1 TAB PO TID Hydrocodone/Acetaminophen (Oark 5-325 Tablet), 1 TAB PO TID PRN Metoprolol Succinate (Metoprolol Succinate), 1 TAB PO DAILY, (Reported) Past Medical History Past Medical History: Bronchitis, Pneumonia Past Surgical History: noncontributory Smoking: Quit greater than 1 year Alcohol Use: None Drug Use: none Lives with: Spouse Lives In: Home Occupation: employed Review of Systems ROS Back pain as stated above in the HPI, otherwise all systems are reviewed and negative. Physical Exam Physical Exam Vital Signs: Temperature: 98.4, Source: Oral, Heart Rate: 84, Respiratory Rate: 16, BP: 145/70, Pulse Oximetry: 94, Weight: 91.500 Oxygen Flow Rate: 0 Physical Exam VITALS: Reviewed and as above. GENERAL: Alert, nontoxic appearing, no apparent distress. RESPIRATORY: No increased work of breathing, no respiratory distress, speaking in full clear sentences, lung sounds clear in all mckeon CHEST: Nontender to palpation CV: Regular rate and rhythm no murmur BACK: Nontender to palpation, no CVA tenderness Progress Results/Orders Results/Orders Vital Signs 02/06/25 15:41 Temp 98.4 Pulse 84 Resp 16 B/P (MAP) 145/70 Pulse Ox 94 O2 Flow Rate 0 EKG/XRAY/CT/US/VASC/MRI Chest X-Ray : Additional Comments EXAM: DI CHEST,SINGLE VIEW HISTORY: r/o pna COMPARISON: None TECHNIQUE: Portable AP views of the chest were performed. FINDINGS: No pneumothorax, consolidative infiltrates, or pulmonary edema. The heart is not enlarged. There is mild thoracic degenerative disc disease. IMPRESSION: No acute intrathoracic process. Electronically Signed by:AAYUSH CARRION MD Date & Time: 02/06/251610 Dictated by: AAYUSH CARRION MD Dictation date and time: 02/06/251610 I have reviewed and agree with the radiology report. I have reviewed and interpreted the imaging as: No focal consolidation or pneumothorax Medical Decision Making Findings This is a 64-year-old male who presented with a proximally three days of back pain described as tightness, patient was concerned due to similar feeling when he had pneumonia, however patient reported no chest pain, shortness of breath, fever, or cough. Chest x-ray was obtained and did not demonstrate evidence of pneumonia or pneumothorax, physical exam was otherwise benign and there was no focal tenderness to palpation of the back. Suspect muscle tension musculoskeletal back pain. Patient reported that he had taken a Flexeril prescribed to his in that had helped his back pain. Patient appropriate for outpatient follow up and prescribed short course of muscle relaxers for musculoskeletal back pain. Differential Diagnosis Pneumonia, rib fracture, pyelonephritis, pneumothorax Departure Time of Disposition: 17:27 Disposition: HOME / SELF CARE / HOMELESS Impression: Primary Impression: Back pain Qualified Codes: M54.6 - Pain in thoracic spine Condition: Improved Discharge Instructions: Acute Back Pain, Adult Additional Instructions: The symptoms you described sound like musculoskeletal back pain, I have prescribed short course of Flexeril (muscle relaxers) as it sounds this has helped you previously. This medication can cause dizziness and imbalance, do not drive or operate heavy machinery while taking this medication. Additionally do not take this medication with alcohol or with opioid containing medications such as Oark or Percocet as this can cause trouble breathing. Please follow up with your primary care provider in the next few days. Please return to the emergency department for any new or worsening concerning symptoms. Referrals: NO PRIMARY CARE PROVIDER (PCP) Prescriptions Cyclobenzaprine* (Cyclobenzaprine*) 10 Mg Tablet 1 TAB PO TID, #15 TAB Prov: MATEUS RAY 02/06/25 Education Educated: Patient Educated regarding: diagnosis, treatment, prognosis, need for follow up Signature Scribe Signature: No scribe Attestation: The note accurately reflects work and decisions made by me.BRANDY Villasenor 02/06/25 23:19 MATEUS RAY February 06, 2025 17:27
== END 2025-02-06 17:46 | disposition home or self-care (01) ==
LOC: ER 15:38
DX: M54.9 Dorsalgia, unspecified (principal); J18.9 Pneumonia, unspecified organism
CPT/HCPCS: 71045; 99283

== ENCOUNTER 2025-02-07 11:09 | Emergency (ER) | payer MEDICARE ==
[~2025-02-07] VITALS: Ht 177.8 cm; Wt 92.2 kg
[~2025-02-07 11:09] MED LIST changes: +CYCL-1 PO
[2025-02-07 11:15] VITALS: BP 163/118; PULSE 105; RESP 18; TEMP 97.8; O2SAT 93
== END 2025-02-07 12:06 | disposition left against medical advice (07) ==
LOC: ER 11:09
DX: R05.9 Cough, unspecified (principal); Z53.21 Procedure and treatment not carried out due to patient leaving prior to being seen by health care provider